=== PATIENT | male | born 1950 | race Caucasian/White ===

== ENCOUNTER → 2016-07-13 | Outpatient (REF) | payer MEDICARE, MEDICAID ==
[2016-07-13 17:59] LABS: CALCIUM LEVEL 8.6 MG/DL (8.8-10.2); CREATININE FOR GFR 1.47 MG/DL (0.70-1.30); GLOMERULAR FILTRATION RATE 51.2 (>49); POTASSIUM SERUM 4.7 MEQ/L (3.5-5.1)
== END ==
LOC: M SFHCCLAY 09:43
PROVIDERS: ATTEND Family Medicine
DX: E11.9 Type 2 diabetes mellitus without complications (principal)

== ENCOUNTER → 2016-10-19 | Outpatient (REF) | payer MEDICARE, OTHER ==
[2016-10-19 18:38] LABS: ALBUMIN/GLOBULIN RATIO 1.48 (1.00-1.93); CALCIUM LEVEL 9.1 MG/DL (8.8-10.2); CREATININE FOR GFR 1.42 MG/DL (0.70-1.30); GLOMERULAR FILTRATION RATE 53.3 (>49); POTASSIUM SERUM 4.7 MEQ/L (3.5-5.1); TOTAL PROTEIN 6.7 GM/DL (6.4-8.2)
== END ==
LOC: M SFHCCLAY 09:54
PROVIDERS: ATTEND Family Medicine
DX: E11.9 Type 2 diabetes mellitus without complications (principal)

== ENCOUNTER → 2017-01-23 | Outpatient (REF) | payer MEDICARE ==
[2017-01-23 17:36] LABS: ALBUMIN 4.1 GM/DL (3.2-5.2); ALBUMIN/GLOBULIN RATIO 1.41 (1.00-1.93); BILIRUBIN,TOTAL 0.6 MG/DL (0.2-1.0); CALCIUM LEVEL 9.3 MG/DL (8.8-10.2); CREATININE FOR GFR 1.52 MG/DL (0.70-1.30); GLOMERULAR FILTRATION RATE 49.1 (>49)
== END ==
LOC: M SFHCCLAY 09:44
PROVIDERS: ATTEND Family Medicine
DX: E11.9 Type 2 diabetes mellitus without complications (principal)

== ENCOUNTER → 2017-05-05 | Outpatient (REF) | payer MEDICARE ==
[2017-05-05 11:43] LABS: ALBUMIN 4.1 GM/DL (3.2-5.2); ALBUMIN/GLOBULIN RATIO 1.37 (1.00-1.93); ALKALINE PHOSPHATASE 44 U/L (45-117); ALT/SGPT 44 U/L (12-78); ANION GAP 8 MEQ/L (8-16); AST/SGOT 20 U/L (7-37); BILIRUBIN,TOTAL 0.7 MG/DL (0.2-1.0); BLOOD UREA NITROGEN 36 MG/DL (7-18); CALCIUM LEVEL 9.3 MG/DL (8.8-10.2); CARBON DIOXIDE LEVEL 28 MEQ/L (21-32); CHLORIDE LEVEL 103 MEQ/L (98-107); CREATININE FOR GFR 1.48 MG/DL (0.70-1.30); GLOMERULAR FILTRATION RATE 50.6 (>49); GLUCOSE, FASTING 218 MG/DL (70-100); POTASSIUM SERUM 4.9 MEQ/L (3.5-5.1); SODIUM LEVEL 139 MEQ/L (136-145); TOTAL PROTEIN 7.1 GM/DL (6.4-8.2)
[2017-05-05 11:59] LABS: ESTIMATED AVERAGE GLUCOSE 229 MG/DL (60-110); HEMOGLOBIN A1c 9.6 %
== END ==
LOC: M SFHCCLAY 09:10
DX: E11.9 Type 2 diabetes mellitus without complications (principal)
CPT/HCPCS: 80053

== ENCOUNTER → 2017-07-03 | Outpatient (REF) | payer MEDICARE | LOC: M SFHCCLAY 11:19 | DX: L57.0 Actinic keratosis (principal); L56.8 Other specified acute skin changes due to ultraviolet radiation | CPT/HCPCS: 88305 ==

== ENCOUNTER → 2017-10-09 | Outpatient (REF) | payer MEDICARE ==
[2017-10-09 18:11] LABS: ALBUMIN/GLOBULIN RATIO 1.38 (1.00-1.93); ALKALINE PHOSPHATASE 41 U/L (45-117); ALT/SGPT 43 U/L (12-78); ANION GAP 8 MEQ/L (8-16); AST/SGOT 19 U/L (7-37); BILIRUBIN,TOTAL 0.6 MG/DL (0.2-1.0); BLOOD UREA NITROGEN 23 MG/DL (7-18); CARBON DIOXIDE LEVEL 27 MEQ/L (21-32); CHLORIDE LEVEL 106 MEQ/L (98-107); CREATININE FOR GFR 1.46 MG/DL (0.70-1.30); GLOMERULAR FILTRATION RATE 51.4 (>49); GLUCOSE, FASTING 228 MG/DL (70-100); POTASSIUM SERUM 4.8 MEQ/L (3.5-5.1); SODIUM LEVEL 141 MEQ/L (136-145); TOTAL PROTEIN 6.9 GM/DL (6.4-8.2)
[2017-10-09 18:17] LABS: ESTIMATED AVERAGE GLUCOSE 217 MG/DL (60-110); HEMOGLOBIN A1c 9.2 %
== END ==
LOC: M SFHCCLAY 10:12
DX: E11.9 Type 2 diabetes mellitus without complications (principal)
CPT/HCPCS: 80053

== ENCOUNTER → 2018-02-01 | Outpatient (REF) | payer MEDICARE ==
[2018-02-01 17:34] LABS: ALBUMIN 4.1 GM/DL (3.2-5.2); ALBUMIN/GLOBULIN RATIO 1.46 (1.00-1.93); ALKALINE PHOSPHATASE 45 U/L (45-117); ALT/SGPT 50 U/L (12-78); ANION GAP 8 MEQ/L (8-16); AST/SGOT 22 U/L (7-37); BILIRUBIN,TOTAL 0.7 MG/DL (0.2-1.0); BLOOD UREA NITROGEN 27 MG/DL (7-18); CARBON DIOXIDE LEVEL 27 MEQ/L (21-32); CHLORIDE LEVEL 103 MEQ/L (98-107); CREATININE FOR GFR 1.43 MG/DL (0.70-1.30); GLOMERULAR FILTRATION RATE 52.5 (>49); GLUCOSE, FASTING 235 MG/DL (70-100); POTASSIUM SERUM 4.9 MEQ/L (3.5-5.1); SODIUM LEVEL 138 MEQ/L (136-145); TOTAL PROTEIN 6.9 GM/DL (6.4-8.2)
[2018-02-01 17:39] LABS: ESTIMATED AVERAGE GLUCOSE 255 MG/DL (60-110); HEMOGLOBIN A1c 10.5 %
== END ==
LOC: M SFHCCLAY 09:43
DX: E11.9 Type 2 diabetes mellitus without complications (principal)
CPT/HCPCS: 80053

== ENCOUNTER → 2018-09-05 | Outpatient (REF) | payer MEDICARE, OTHER ==
[2018-09-05 17:52] LABS: BILIRUBIN,TOTAL 0.6 MG/DL (0.2-1.0); CALCIUM LEVEL 8.9 MG/DL (8.8-10.2); CHOLESTEROL RISK RATIO 4.829 (<5); CREATININE FOR GFR 1.46 MG/DL (0.70-1.30); GLOMERULAR FILTRATION RATE 51.3 (>49); POTASSIUM SERUM 4.9 MEQ/L (3.5-5.1); TOTAL PROTEIN 6.9 GM/DL (6.4-8.2)
[2018-09-05 18:50] LABS: HEMOGLOBIN A1c 8.3 %
== END ==
LOC: M SFHCCLAY 09:43
PROVIDERS: ATTEND Family Medicine
DX: E11.9 Type 2 diabetes mellitus without complications (principal)

== ENCOUNTER → 2019-03-06 | Outpatient (REF) | payer MEDICARE ==
[2019-03-06 17:08] LABS: ALBUMIN 4.1 GM/DL (3.2-5.2); BILIRUBIN,TOTAL 0.9 MG/DL (0.2-1.0); CALCIUM LEVEL 9.5 MG/DL (8.8-10.2); CREATININE FOR GFR 1.44 MG/DL (0.70-1.30); GLOMERULAR FILTRATION RATE 51.9 (>49); POTASSIUM SERUM 5.3 MEQ/L (3.5-5.1)
[2019-03-06 17:51] LABS: HEMOGLOBIN A1c 8.1 %
== END ==
LOC: M SFHCCLAY 11:29
PROVIDERS: ATTEND Family Medicine
DX: E11.9 Type 2 diabetes mellitus without complications (principal)

== ENCOUNTER → 2019-09-04 | Outpatient (REF) | payer MEDICARE, MEDICAID ==
[2019-09-04 17:22] LABS: HEMOGLOBIN A1c 8.4 %
[2019-09-04 17:42] LABS: BILIRUBIN,TOTAL 0.7 MG/DL (0.2-1.0); CALCIUM LEVEL 9.3 MG/DL (8.8-10.2); CHOLESTEROL RISK RATIO 4.857 (<5); CREATININE FOR GFR 1.6 MG/DL (0.70-1.30); POTASSIUM SERUM 4.5 MEQ/L (3.5-5.1); TOTAL PROTEIN 7.1 GM/DL (6.4-8.2)
== END ==
LOC: M SFHCCLAY 10:17
PROVIDERS: ATTEND Family Medicine
DX: E11.9 Type 2 diabetes mellitus without complications (principal)

== ENCOUNTER → 2020-03-13 | Outpatient (REF) | payer MEDICAID, MEDICARE, OTHER ==
[2020-03-13 16:11] LABS: ALBUMIN 4.4 GM/DL (3.2-5.2); BILIRUBIN,TOTAL 0.8 MG/DL (0.2-1.0); CALCIUM LEVEL 9.9 MG/DL (8.8-10.2); CHOLESTEROL RISK RATIO 4.422 (<5); CREATININE FOR GFR 1.61 MG/DL (0.70-1.30); GLOMERULAR FILTRATION RATE 45.5 (>49); POTASSIUM SERUM 4.9 MEQ/L (3.5-5.1); TOTAL PROTEIN 7.4 GM/DL (6.4-8.2)
[2020-03-13 16:15] LABS: HEMOGLOBIN A1c 8.3 %
[2020-03-13 16:44] LABS: CREATININE, URINE 62.8 MG/DL; MALB URINE SIEMENS 7.9 MG/L; MAU/CREAT RATIO 12.5 MCG/MG (0.0-30.0)
== END ==
LOC: M SFHCCLAY 11:32
PROVIDERS: ATTEND Family Medicine
DX: E11.9 Type 2 diabetes mellitus without complications (principal); I10 Essential (primary) hypertension

== ENCOUNTER → 2020-09-07 | Outpatient (REF) | payer MEDICARE, MEDICAID ==
[2020-09-07 12:41] LABS: HEMOGLOBIN A1c 9.2 %
[2020-09-07 13:00] LABS: BILIRUBIN,TOTAL 0.6 MG/DL (0.2-1.0); CALCIUM LEVEL 9.7 MG/DL (8.8-10.2); CREATININE FOR GFR 1.49 MG/DL (0.70-1.30); GLOMERULAR FILTRATION RATE 49.8 (>49); POTASSIUM SERUM 5.3 MEQ/L (3.5-5.1); TOTAL PROTEIN 7.1 GM/DL (6.4-8.2)
== END ==
LOC: M SFHCCLAY 09:30
PROVIDERS: ATTEND Family Medicine
DX: E11.9 Type 2 diabetes mellitus without complications (principal)

== ENCOUNTER → 2021-03-10 | Outpatient (REF) | payer MEDICARE, MEDICAID ==
[2021-03-10 16:52] LABS: ALBUMIN 4.2 GM/DL (3.2-5.2); BILIRUBIN,TOTAL 0.8 MG/DL (0.2-1.0); CALCIUM LEVEL 9.5 MG/DL (8.8-10.2); CHOLESTEROL RISK RATIO 3.195 (<5); CREATININE FOR GFR 1.45 MG/DL (0.70-1.30); GLOMERULAR FILTRATION RATE 51.2 (>42); POTASSIUM SERUM 5.3 MEQ/L (3.5-5.1)
[2021-03-10 18:23] LABS: HEMOGLOBIN A1c 6.3 %
== END ==
LOC: M SFHCCLAY 10:22
PROVIDERS: ATTEND Family Medicine
DX: E11.9 Type 2 diabetes mellitus without complications (principal)

== ENCOUNTER → 2021-09-09 | Outpatient (REF) | payer MEDICARE ==
[2021-09-09 14:20] LABS: HEMOGLOBIN A1c 6.8 %
[2021-09-09 20:19] LABS: BILIRUBIN,TOTAL 0.7 MG/DL (0.2-1.0); CALCIUM LEVEL 9.3 MG/DL (8.8-10.2); CREATININE FOR GFR 1.41 MG/DL (0.70-1.30); GLOMERULAR FILTRATION RATE 52.9 (>42); POTASSIUM SERUM 4.9 MEQ/L (3.5-5.1); TOTAL PROTEIN 6.6 GM/DL (6.4-8.2)
== END ==
LOC: M SFHCCLAY 09:56
PROVIDERS: ATTEND Family Medicine
DX: E11.9 Type 2 diabetes mellitus without complications (principal)

== ENCOUNTER → 2022-03-01 | Outpatient (REF) | payer MEDICARE ==
[2022-03-01 18:20] LABS: BASO # 0.1 10^3/uL (0.0-0.2); BASO % 0.7 % (0.0-1.0); EOS # 0.2 10^3/uL (0.0-0.5); EOS % 2.4 % (0.0-3.0); HEMOGLOBIN 15.3 g/dl (13.5-17.5); LYMPH # 1.6 10^3/uL (1.5-5.0); LYMPH % 24.1 % (24.0-44.0); MEAN CORPUSCULAR HEMOGLOBIN 30.7 pg (27.0-33.0); MEAN CORPUSCULAR HGB CONC 32.6 g/dl (32.0-36.5); MEAN CORPUSCULAR VOLUME 94.4 fl (80.0-96.0); MONO # 0.6 10^3/uL (0.0-0.8); MONO % 8.7 % (2.0-8.0); NEUTROPHILS # 4.3 10^3/uL (1.5-8.5); NEUTROPHILS % 63.7 % (36.0-66.0); PLATELET COUNT, AUTOMATED 208 10^3/uL (150-450); RED BLOOD COUNT 4.98 10^6/uL (4.30-6.10); WHITE BLOOD COUNT 6.8 10^3/uL (4.0-10.0)
[2022-03-01 18:47] LABS: ALBUMIN 4.1 G/DL (3.2-5.2); BILIRUBIN,TOTAL 0.7 MG/DL (0.3-1.2); CALCIUM LEVEL 9.7 MG/DL (8.3-10.6); CHOLESTEROL RISK RATIO 3.3 (<5); CREATININE FOR GFR 1.33 MG/DL (0.70-1.30); GLOMERULAR FILTRATION RATE 56.4 (>42); LDL CHOLESTEROL 68.2 MG/DL (<100); POTASSIUM SERUM 5.7 MMOL/L (3.5-5.1); TOTAL PROTEIN 6.6 G/DL (5.7-8.2)
[2022-03-01 18:50] LABS: HEMOGLOBIN A1c 7.2 % (4.0-6.0)
== END ==
LOC: M SFHCCLAY 10:16
PROVIDERS: ATTEND Family Medicine
DX: Z01.818 Encounter for other preprocedural examination (principal); E11.9 Type 2 diabetes mellitus without complications; I10 Essential (primary) hypertension; R76.8 Other specified abnormal immunological findings in serum; R00.2 Palpitations; E55.9 Vitamin D deficiency, unspecified

== ENCOUNTER → 2022-03-03 | Outpatient (REF) | payer MEDICARE ==
[2022-03-03 18:08] LABS: CREATININE, URINE 73.1 MG/DL
[2022-03-03 18:09] LABS: MAU/CREAT RATIO 9.5 MCG/MG (0.0-30.0)
== END ==
LOC: M SFHCCLAY 16:39
PROVIDERS: ATTEND Family Medicine
DX: E11.9 Type 2 diabetes mellitus without complications (principal)

== ENCOUNTER → 2022-08-29 | Outpatient (REF) | payer MEDICARE, OTHER ==
[2022-08-29 17:25] LABS: HEMOGLOBIN A1c 8.7 % (4.0-6.0)
[2022-08-29 17:36] LABS: CALCIUM LEVEL 10.1 MG/DL (8.3-10.6); CREATININE FOR GFR 1.28 MG/DL (0.70-1.30); POTASSIUM SERUM 4.6 MMOL/L (3.5-5.1); TOTAL PROTEIN 6.3 G/DL (5.7-8.2)
== END ==
LOC: M SFHCCLAY 10:22
PROVIDERS: ATTEND Family Medicine
DX: E11.9 Type 2 diabetes mellitus without complications (principal)

== ENCOUNTER → 2023-02-03 | Outpatient (REF) | payer MEDICARE, MEDICAID ==
[2023-02-03 17:44] LABS: HEMATOCRIT 45.9 % (42.0-52.0); HEMOGLOBIN 15.3 g/dl (13.5-17.5); MEAN CORPUSCULAR HEMOGLOBIN 31.2 pg (27.0-33.0); MEAN CORPUSCULAR HGB CONC 33.3 g/dl (32.0-36.5); MEAN CORPUSCULAR VOLUME 93.5 fl (80.0-96.0); PLATELET COUNT, AUTOMATED 211 10^3/uL (150-450); RED BLOOD COUNT 4.91 10^6/uL (4.30-6.10); WHITE BLOOD COUNT 6.6 10^3/uL (4.0-10.0)
[2023-02-03 17:59] LABS: HEMOGLOBIN A1c 8.1 % (4.0-6.0)
[2023-02-03 18:07] LABS: CREATININE, URINE 79.6 MG/DL
[2023-02-03 18:14] LABS: BILIRUBIN,TOTAL 0.8 MG/DL (0.3-1.2); CALCIUM LEVEL 9.5 MG/DL (8.3-10.6); CHOLESTEROL RISK RATIO 3.39 (<5); CREATININE FOR GFR 1.38 MG/DL (0.70-1.30); GLOMERULAR FILTRATION RATE 53.9 (>42); HDL CHOLESTEROL 40.9 MG/DL (>40); LDL CHOLESTEROL 81.3 MG/DL (<100); NON-HDL-C 98.1 MG/DL; POTASSIUM SERUM 4.9 MMOL/L (3.5-5.1); THYROID STIMULATING HORMONE 1.695 uIU/ML (0.55-4.78); TOTAL PROTEIN 6.5 G/DL (5.7-8.2)
== END ==
LOC: M SFHCCLAY 10:38
PROVIDERS: ATTEND Family Medicine
DX: I10 Essential (primary) hypertension (principal); E11.9 Type 2 diabetes mellitus without complications

== ENCOUNTER 2023-04-12 10:31 | Day surgery (SDC) | payer MEDICARE, MEDICAID ==
[~2023-04-12] VITALS: Ht 177.8 cm; Wt 89.4 kg
[2023-04-12] MEDS: OFLOXACIN 0.3 % (OCUFLOX) OPTH SOL 5ML OD ONE (06:00)
[~2023-04-12 10:31] MED LIST: JARD1TAB3 PO; LISI10TA22 PO; METF750T36 PO; PHENYLEPHRINE 10% OPHTH SOL 5ML OD PRN; PROPARACAINE 0.5% OPHTH SOL 15ML OU ONE; SEMA7TAB2 PO
[2023-04-12] MEDS: PHENYLEPHRINE 2.5% OPHTH SOL 2ML OD SCH (11:34)
[2023-04-12] MEDS: CYCLOPENTOLATE 1% OPHTH SOLN 2ML BTL OD SCH (11:34)
[2023-04-12] MEDS: TROPICAMIDE 1% OPHTH SOLN 15ML OD SCH (11:34)
[2023-04-12] MEDS: PROPARACAINE 0.5% OPHTH SOL 15ML OU ONE (11:34)
[2023-04-12] MEDS ORDERED: MIDAZOLAM INJ 2MG/2ML VIAL As Ordered ONE (11:36)
[2023-04-12] MEDS: BSS IRRIG/VANCO(10MG)/TOBRA(5MG)/EPINEPH(1:1000-0.5CC)500ML BAG-ORONLY As Ordered ONE (11:52)
[2023-04-12] MEDS: LIDOCAINE 1% SDV 5ML VIAL As Ordered ONE (11:52)
[2023-04-12] MEDS: CEFUROXIME 1MG/0.1ML INTRACAMERAL INJ As Ordered ONE (11:54)
[2023-04-12 12:03] VITALS: BP 123/80; TEMP 97.2; O2SAT 96
[2023-04-14] MEDS ORDERED: [UNRECOGNIZED DRUG - CODE] (10:56)
== END 2023-04-12 12:36 | disposition home or self-care (01) ==
LOC: M SDC 10:31
PROVIDERS: ATTEND Ophthalmology
DX: H25.11 Age-related nuclear cataract, right eye (principal); H57.03 Miosis; Z88.4 Allergy status to anesthetic agent; I10 Essential (primary) hypertension; E11.9 Type 2 diabetes mellitus without complications; Z79.84 Long term (current) use of oral hypoglycemic drugs; Z79.899 Other long term (current) drug therapy
CPT/HCPCS: 66982; J0697; J2250; V2632

== ENCOUNTER 2023-04-19 09:42 | Day surgery (SDC) | payer MEDICARE, MEDICAID ==
[~2023-04-19] VITALS: Ht 177.8 cm; Wt 89.4 kg
[~2023-04-19 09:42] MED LIST changes: -PHENYLEPHRINE 10% OPHTH SOL 5ML OD PRN; +PHENYLEPHRINE 10% OPHTH SOL 5ML OS PRN; -PROPARACAINE 0.5% OPHTH SOL 15ML OU ONE; +[UNRECOGNIZED DRUG - CODE]
[2023-04-19] MEDS: PROPARACAINE 0.5% OPHTH SOL 15ML OU ONE (10:57)
[2023-04-19] MEDS: CYCLOPENTOLATE 1% OPHTH SOLN 2ML BTL OS SCH (10:57)
[2023-04-19] MEDS: PHENYLEPHRINE 2.5% OPHTH SOL 2ML OS SCH (10:58)
[2023-04-19] MEDS: OFLOXACIN 0.3 % (OCUFLOX) OPTH SOL 5ML OS ONE (10:58)
[2023-04-19] MEDS: TROPICAMIDE 1% OPHTH SOLN 15ML OS SCH (10:58)
[2023-04-19] MEDS ORDERED: GLUCOSE 4GM CHEW TABLET PO PRN (11:15)
[2023-04-19] MEDS ORDERED: DEXTROSE 50% 50ML SYRINGE IV PRN (11:15)
[2023-04-19] MEDS ORDERED: INSULIN LISPRO (NovoLOG) PER UNIT SC PRN (11:15)
[2023-04-19] MEDS ORDERED: GLUCAGON INJ 1MG VIAL SC PRN (11:15)
[2023-04-19] MEDS: BSS IRRIG/VANCO(10MG)/TOBRA(5MG)/EPINEPH(1:1000-0.5CC)500ML BAG-ORONLY As Ordered ONE (11:30)
[2023-04-19] MEDS: LIDOCAINE 1% SDV 5ML VIAL As Ordered ONE (11:30)
[2023-04-19] MEDS: CEFUROXIME 1MG/0.1ML INTRACAMERAL INJ As Ordered ONE (11:30)
[2023-04-19] MEDS ORDERED: fentaNYL 100 MCG/2 ML INJECTION As Ordered ONE (11:37)
[2023-04-19] MEDS ORDERED: MIDAZOLAM INJ 2MG/2ML VIAL As Ordered ONE (11:37)
[2023-04-19 11:41] VITALS: BP 128/83; TEMP 96.8; O2SAT 98
== END 2023-04-19 12:12 | disposition home or self-care (01) ==
LOC: M SDC 09:42
PROVIDERS: ATTEND Ophthalmology
DX: E11.36 Type 2 diabetes mellitus with diabetic cataract (principal); H25.12 Age-related nuclear cataract, left eye; L30.9 Dermatitis, unspecified; Z79.84 Long term (current) use of oral hypoglycemic drugs; Z79.899 Other long term (current) drug therapy; Z88.4 Allergy status to anesthetic agent
CPT/HCPCS: 66984; J0697; J2250; J3010; V2632

== ENCOUNTER → 2023-08-10 | Outpatient (REF) | payer MEDICARE, SELFPAY ==
[~2023-08-10] MED LIST changes: -PHENYLEPHRINE 10% OPHTH SOL 5ML OS PRN
[2023-08-10 19:43] LABS: HEMOGLOBIN A1c 8.4 % (4.0-6.0)
[2023-08-10 19:50] LABS: ALKALINE PHOSPHATASE 44 U/L (46-116); ALT/SGPT 44 U/L (7.0-40); AST/SGOT 22 U/L (<34); BILIRUBIN,TOTAL 0.8 MG/DL (0.3-1.2); BLOOD UREA NITROGEN 20 MG/DL (9-23); CALCIUM LEVEL 8.8 MG/DL (8.3-10.6); CARBON DIOXIDE LEVEL 27 MMOL/L (20-31); CHLORIDE LEVEL 105 MMOL/L (98-107); CREATININE FOR GFR 1.35 MG/DL (0.70-1.30); GLOMERULAR FILTRATION RATE > 60.0 (>42); GLUCOSE, FASTING 161 MG/DL (74-106); POTASSIUM SERUM 5.3 MMOL/L (3.5-5.1); SODIUM LEVEL 140 MMOL/L (136-145); TOTAL PROTEIN 5.5 G/DL (5.7-8.2)
== END ==
LOC: M SFHCCLAY 10:22
PROVIDERS: ATTEND Family Medicine
DX: E11.9 Type 2 diabetes mellitus without complications (principal)

== ENCOUNTER → 2024-01-24 | Outpatient (REF) | payer MEDICARE ==
[2024-01-24 17:49] LABS: ALBUMIN 4.3 G/DL (3.2-5.2); BILIRUBIN,TOTAL 1.3 MG/DL (0.3-1.2); CALCIUM LEVEL 10.4 MG/DL (8.3-10.6); CHOLESTEROL RISK RATIO 3.87 (<5); CREATININE FOR GFR 1.38 MG/DL (0.70-1.30); GLOMERULAR FILTRATION RATE 53.8 (>42); HDL CHOLESTEROL 36.9 MG/DL (>40); HEMATOCRIT 47.1 % (42.0-52.0); HEMOGLOBIN 15.8 g/dl (13.5-17.5); LDL CHOLESTEROL 79.7 MG/DL (<100); MEAN CORPUSCULAR HEMOGLOBIN 30.9 pg (27.0-33.0); MEAN CORPUSCULAR HGB CONC 33.5 g/dl (32.0-36.5); MEAN CORPUSCULAR VOLUME 92.2 fl (80.0-96.0); NON-HDL-C 106.1 MG/DL; PLATELET COUNT, AUTOMATED 239 10^3/uL (150-450); POTASSIUM SERUM 5.5 MMOL/L (3.5-5.1); RED BLOOD COUNT 5.11 10^6/uL (4.30-6.10); TOTAL PROTEIN 7.1 G/DL (5.7-8.2); WHITE BLOOD COUNT 9.2 10^3/uL (4.0-10.0)
[2024-01-24 17:50] LABS: THYROID STIMULATING HORMONE 1.897 uIU/ML (0.55-4.78)
[2024-01-24 18:03] LABS: HEMOGLOBIN A1c 7.6 % (4.0-6.0)
== END ==
LOC: M SFHCCLAY 10:46
PROVIDERS: ATTEND Family Medicine
DX: E11.9 Type 2 diabetes mellitus without complications (principal); I10 Essential (primary) hypertension

== ENCOUNTER → 2024-01-29 | Outpatient (REF) | payer MEDICARE ==
[2024-01-29 17:52] LABS: CREATININE, URINE 77.1 MG/DL; MALB URINE SIEMENS < 3.0 MG/L
== END ==
LOC: M SFHCCLAY 09:47
PROVIDERS: ATTEND Family Medicine
DX: E11.9 Type 2 diabetes mellitus without complications (principal)

== ENCOUNTER → 2025-01-16 | Outpatient (REF) | payer MEDICARE, MEDICAID ==
[2025-01-16 17:52] LABS: PLATELET COUNT, AUTOMATED 214 10^3/uL (150-450)
[2025-01-16 18:20] LABS: CREATININE, URINE 99.5 MG/DL; MALB URINE SIEMENS 6.0 MG/L; MAU/CREAT RATIO 6.0 MCG/MG (0.0-30.0)
[2025-01-16 18:21] LABS: ALT/SGPT 25.0 U/L (7.0-40); AST/SGOT 18.0 U/L (<34); CALCIUM LEVEL 9.5 MG/DL (8.3-10.6); CARBON DIOXIDE LEVEL 28.0 MMOL/L (20-31); CHLORIDE LEVEL 107.0 MMOL/L (98-107); CHOLESTEROL LEVEL 128.0 MG/DL (<200); CHOLESTEROL RISK RATIO 3.45 (<5); CREATININE FOR GFR 1.48 MG/DL (0.70-1.30); GLOMERULAR FILTRATION RATE 49.3 (>42); LDL CHOLESTEROL 75.0 MG/DL (<100); NON-HDL-C 91.0 MG/DL; POTASSIUM SERUM 5.1 MMOL/L (3.5-5.1); SODIUM LEVEL 143.0 MMOL/L (136-145); TRIGLYCERIDES LEVEL 80.0 MG/DL (<150)
[2025-01-16 18:24] LABS: PSA SCREENING 0.92 NG/ML (< 4.00)
[2025-01-16 19:05] LABS: ESTIMATED AVERAGE GLUCOSE 143.0 MG/DL (60-110)
== END ==
LOC: M SFHCCLAY 10:12
PROVIDERS: ATTEND Family Medicine
DX: I10 Essential (primary) hypertension (principal); E11.9 Type 2 diabetes mellitus without complications; Z12.5 Encounter for screening for malignant neoplasm of prostate
CPT/HCPCS: 80053; 80061; 82043; 83036; 84443; 85027; G0103